=== PATIENT | female | born 1945 | race Caucasian/White ===

== ENCOUNTER 2020-05-08 13:37 | Emergency (ER) | payer MEDICARE, BC ==
[2020-05-08 13:54] VITALS: BP 158/82; PULSE 91
--- NOTE | 2020-05-08 14:47 | EDM.PDOC ---
ED HPI GENERAL MEDICAL PROBLEM - General Chief Complaint: Cardiovascular Problem Stated Complaint: SORE THROAT Time Seen by Provider: 05/08/20 14:04 Source of Information: Reports: Patient History Limitations: Reports: No Limitations - History of Present Illness INITIAL COMMENTS - FREE TEXT/NARRATIVE: The patient presents with right sided neck discomfort. Last week she passed out and the next day she saw Dr Tijerina. He did a CT of her head that showed a stroke. She also had an EEG and that looked good. She is scheduled for an MRI of the brain within the week. She has no neurologic deficits. She has no headache, fever, chills, cough, congestion, runny nose, chest pain, shortness of breath, abdominal pain, nausea and vomiting. She has no numbness or weakness. She does have some mild right sided neck discomfort. Onset: Gradual Duration: Day(s): Location: Reports: Neck (right side) Quality: Reports: Ache Severity: Mild Improves with: Reports: None Worsens with: Reports: None Associated Symptoms: Reports: No Other Symptoms Right Neck Pain Score (Numeric/FACES): 3 - Related Data Allergies Allergy/AdvReac Type Severity Reaction Status Date / Time beer Allergy Unknown Airway Uncoded 05/08/20 13:54 Tightness crab Allergy Airway Uncoded 05/08/20 13:54 Tightness lettuce Allergy Cannot Uncoded 05/08/20 13:54 Remember limes Allergy Airway Uncoded 05/08/20 13:54 Tightness macadamia nuts Allergy Airway Uncoded 05/08/20 13:54 Tightness scallops Allergy Airway Uncoded 05/08/20 13:54 Tightness walnuts Allergy Airway Uncoded 05/08/20 13:54 Tightness wine Allergy Airway Uncoded 05/08/20 13:54 Tightness Home Meds: Home Meds Alendronate [Fosamax] 70 mg PO Q7D@0600 08/31/15 [History] Aspirin 81 mg PO BRK 08/31/15 [History] Biotin 5,000 mcg PO DAILY 08/31/15 [History] Cholecalciferol (Vitamin D3) [Vitamin D] 400 units PO DAILY 08/31/15 [History] Choleslo. 2 PO BID 08/31/15 [History] Glucosamine. 1,500 mg PO DAILY 08/31/15 [History] Latanoprost [Xalatan 0.005% Ophth Soln] 1 drop EYEBOTH BEDTIME 08/31/15 [History] Lisinopril 30 mg PO DAILY 08/31/15 [History] Saxagliptin [Onglyza] 5 mg PO DAILY 08/31/15 [History] Ubidecarenone [Coq-10] 100 mg PO DAILY 08/31/15 [History] atorvaSTATin [Lipitor] 10 mg PO BEDTIME 08/31/15 [History] Past Medical History HEENT History: Reports: Cataract Cardiovascular History: Reports: High Cholesterol, Hypertension Gastrointestinal History: Reports: Hemorrhoids Musculoskeletal History: Reports: None, Back Pain, Chronic Other Musculoskeletal History: pt has frequent visits to chiropractor because of bones frequently out of place. Endocrine/Metabolic History: Reports: Diabetes, Type II - Past Surgical History HEENT Surgical History: Reports: None GI Surgical History: Reports: None Musculoskeletal Surgical History: Reports: Shoulder Surgery Social & Family History - Family History HEENT: Reports: Cataract Other HEENT Family History: mother and father had cataracts. Cardiac: Reports: Hypertension Other Cardiac Family History: mother and father. Respiratory: Reports: Asthma Other Respiratory Family Hisory: father Musculoskeletal: Reports: Back pain, Chronic Other Musculoskeletal Family History: father; frequent visits to chiropractor Neurological: Reports: Alzheimers Disease Other Neurological Family History: father Endocrine/Metabolic: Reports: Diabetes, type II Other Endocrine/Metabolic Family History: mother diabetic Oncologic: Reports: Prostate, Other (See Below) Other Oncologic Family History: mother had cancerous growth on top of stomach. dad had prostate cancer - Tobacco Use Smoking Status *Q: Never Smoker Second Hand Smoke Exposure: No - Caffeine Use Caffeine Use: Reports: Coffee - Recreational Drug Use Recreational Drug Use: No ED ROS GENERAL - Review of Systems Review Of Systems: See Below Constitutional: Reports: No Symptoms HEENT: Reports: No Symptoms Respiratory: Reports: No Symptoms Cardiovascular: Reports: No Symptoms Endocrine: Reports: No Symptoms GI/Abdominal: Reports: No Symptoms : Reports: No Symptoms Musculoskeletal: Reports: Neck Pain Skin: Reports: No Symptoms ED EXAM, GENERAL - Physical Exam Exam: See Below Exam Limited By: No Limitations General Appearance: Alert, No Apparent Distress Ears: Normal External Exam Nose: Normal Inspection Head: Atraumatic, Normocephalic Neck: Normal Inspection, Supple, Non-Tender, Other (No bruit is heard) Respiratory/Chest: No Respiratory Distress, Lungs Clear, Normal Breath Sounds Cardiovascular: Regular Rate, Rhythm, No Edema, No Murmur GI/Abdominal: Soft, Non-Tender, No Organomegaly, No Mass Back Exam: Normal Inspection Extremities: Normal Inspection Neurological: Alert, Oriented, No Motor/Sensory Deficits Course - Vital Signs Last Recorded V/S: Last Vital Signs Temp 97.2 F 05/08/20 13:48 Pulse 91 05/08/20 13:48 Resp 18 05/08/20 13:48 BP 158/82 H 05/08/20 13:48 Pulse Ox 99 05/08/20 13:48 - Re-Assessments/Exams Free Text/Narrative Re-Assessment/Exam: 05/08/20 14:48 I have ordered a carotid US bilaterally. 05/08/20 15:56 The US shows plaque asymmetrically worse on the right side. Velocity measurements within the right internal carotid artery correspond to stenosis in the range of 1-49 percent. Velocity measurements within the left internal carotid artery correspond to stenosis at the lower range of 1-49. She is on an aspirin and statin an she has an MRI tomorrow. I will discharge her home. 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 Follow up with Dr Tijerina within a week. Please return if you are worse. Sepsis Event Note (ED) - Evaluation Sepsis Screening Result: No Definite Risk - Focused Exam Vital Signs: Vital Signs Temp Pulse Resp BP Pulse Ox 05/08/20 13:48 97.2 F 91 18 158/82 H 99
--- NOTE | 2020-05-08 15:29 | US ---
Carotid ultrasound: Duplex and color flow imaging was obtained of the carotid arteries. Comparison: No prior carotid imaging is available Plaque: Moderate amount of focal plaque within the right carotid bulb extending into the origin of the internal carotid artery. Minimal plaque within the proximal left internal carotid artery plaque on the right side it is heterogeneous and calcified with irregular surface margins. Right side: CCA has a peak systolic velocity of 0.97 m/sec. ICA has a peak systolic velocity of 0.88 m/sec and peak end-diastolic velocity of 0.22 m/sec. ECA has a peak systolic velocity of 1.14 M/sec. ICA/CCA ratio is 0.9. Vertebral artery has a peak systolic velocity of 0.59. Left side: CCA has a peak systolic velocity of 1.24 m/sec. ICA has a peak systolic velocity of 1.26 m/sec and peak end-diastolic velocity of 0.37 m/sec. ECA has a peak systolic velocity of 0.79 m/sec. ICA/CCA ratio is 1.0. Vertebral artery has a peak systolic velocity of 0.61. Impression: 1. Plaque asymmetrically worse on the right side. 2. Velocity measurements within the right internal carotid artery correspond to stenosis in the range of 1-49 percent. 3. Velocity measurements within the left internal carotid artery correspond to stenosis at the lower range of 1-49 percent. Diagnostic code #2 Study was dictated in MDT
== END 2020-05-08 16:06 | disposition home or self-care (01) ==
LOC: JD.ED 13:37
DX: I65.23 Occlusion and stenosis of bilateral carotid arteries (principal); I10 Essential (primary) hypertension; E78.00 Pure hypercholesterolemia, unspecified; E11.9 Type 2 diabetes mellitus without complications; Z91.018 Allergy to other foods; Z79.82 Long term (current) use of aspirin; Z79.899 Other long term (current) drug therapy
CPT/HCPCS: 93880; 93880-26; 99282; 99283-25

== ENCOUNTER 2022-01-02 09:32 | Emergency (ER) | payer MEDICARE, BC ==
[2022-01-02 13:36] VITALS: BP 138/53; PULSE 68
== END 2022-01-02 12:35 | disposition home or self-care (01) ==
LOC: JD.ED 09:32
DX: S82.832A Other fracture of upper and lower end of left fibula, initial encounter for closed fracture (principal); R55 Syncope and collapse; D64.89 Other specified anemias; E78.00 Pure hypercholesterolemia, unspecified; I10 Essential (primary) hypertension; E11.9 Type 2 diabetes mellitus without complications; Z91.09 Other allergy status, other than to drugs and biological substances; Z79.82 Long term (current) use of aspirin; Z79.899 Other long term (current) drug therapy; W18.30XA Fall on same level, unspecified, initial encounter
CPT/HCPCS: 36415; 70450; 70450-26; 73610-26-LT; 73610-LT; 80053; 82947; 84484; 85025; 93005; 93010; 99283; 99284-25

== ENCOUNTER 2022-02-17 13:10 | Emergency (ER) | payer MEDICARE, BC ==
[2022-02-17 13:28] VITALS: BP 92/67; PULSE 78
[2022-02-17] MEDS ORDERED: Sodium Chloride 0.9% 10 ML Syringe FLUSH PRN (13:43)
[2022-02-17] MEDS ORDERED: Sodium Chloride 0.9% 1,000 ML IV ONE (14:06)
== END 2022-02-17 15:45 | disposition home or self-care (01) ==
LOC: JD.ED 13:10
DX: R55 Syncope and collapse (principal); E78.00 Pure hypercholesterolemia, unspecified; I10 Essential (primary) hypertension; E11.9 Type 2 diabetes mellitus without complications; Z87.891 Personal history of nicotine dependence; Z91.018 Allergy to other foods; Z79.82 Long term (current) use of aspirin; Z79.899 Other long term (current) drug therapy
CPT/HCPCS: 36415; 80053; 83735; 84484; 85025; 93005; 93225; 93226; 96360; 99285; J3490; J7030

== ENCOUNTER 2022-03-06 11:11 | Emergency (ER) | payer MEDICARE, BC ==
[2022-03-06 12:11] VITALS: BP 118/69; PULSE 70
[2022-03-06] MEDS ORDERED: Sodium Chloride 0.9% 10 ML Syringe FLUSH PRN (13:17)
[2022-03-06 14:30] LABS: ESTIMATED GFR 43 mL/min (>60)
== END 2022-03-06 15:40 | disposition home or self-care (01) ==
LOC: JD.ED 11:11
DX: R55 Syncope and collapse (principal); N39.0 Urinary tract infection, site not specified; E87.1 Hypo-osmolality and hyponatremia; I10 Essential (primary) hypertension; Z91.013 Allergy to seafood; Z91.018 Allergy to other foods; Z79.899 Other long term (current) drug therapy; Z87.891 Personal history of nicotine dependence; Z79.82 Long term (current) use of aspirin
CPT/HCPCS: 36415; 71045; 80053; 81001; 83735; 84484; 85025; 86140; 87086; 93005; 99284; J3490; 93010

== ENCOUNTER 2022-04-10 10:45 | Emergency (ER) | payer MEDICARE, BC ==
[2022-04-10] MEDS ORDERED: Sodium Chloride 0.9% 10 ML Syringe FLUSH PRN (11:09)
[2022-04-10 19:47] VITALS: BP 127/82; PULSE 65
== END 2022-04-10 14:00 | disposition home or self-care (01) ==
LOC: JD.ED 10:45
DX: R55 Syncope and collapse (principal); I10 Essential (primary) hypertension; E11.9 Type 2 diabetes mellitus without complications; Z91.013 Allergy to seafood; Z91.018 Allergy to other foods; Z79.899 Other long term (current) drug therapy; Z79.82 Long term (current) use of aspirin
CPT/HCPCS: 36415; 70450; 71045; 80053; 83735; 83880; 84484; 85025; 85610; 85730; 93005; 99285; J3490; 93010; 99284

== ENCOUNTER 2023-03-19 07:13 | Emergency (ER) | payer MEDICARE, BC ==
[2023-03-19] MEDS ORDERED: Ibuprofen 600 MG Tab PO ONE (07:43)
[2023-03-19] MEDS ORDERED: Acetaminophen 325 MG Tab PO ONE (07:43)
[2023-03-19 08:57] VITALS: BP 149/64; PULSE 60
== END 2023-03-19 09:00 | disposition home or self-care (01) ==
LOC: JD.ED 07:13
DX: M25.561 Pain in right knee (principal); M25.551 Pain in right hip; E11.9 Type 2 diabetes mellitus without complications; E78.00 Pure hypercholesterolemia, unspecified; I10 Essential (primary) hypertension; Z79.82 Long term (current) use of aspirin; Z79.899 Other long term (current) drug therapy; Z91.018 Allergy to other foods; Z88.8 Allergy status to other drugs, medicaments and biological substances; Z91.048 Other nonmedicinal substance allergy status; Z91.013 Allergy to seafood
CPT/HCPCS: 99283; A9270

== ENCOUNTER 2023-05-13 18:05 | Emergency (ER) | payer MEDICARE, BC ==
[2023-05-13 20:22] VITALS: BP 155/72; PULSE 89
== END 2023-05-13 20:09 | disposition home or self-care (01) ==
LOC: JD.ED 18:05
DX: K59.00 Constipation, unspecified (principal); E11.9 Type 2 diabetes mellitus without complications; I10 Essential (primary) hypertension; E78.00 Pure hypercholesterolemia, unspecified; Z79.82 Long term (current) use of aspirin; Z79.899 Other long term (current) drug therapy; Z91.018 Allergy to other foods; Z91.013 Allergy to seafood
CPT/HCPCS: 99283

== ENCOUNTER 2023-09-28 09:39 | Emergency (ER) | payer BC, MEDICARE ==
[2023-09-28 10:16] VITALS: BP 148/78; PULSE 82
== END 2023-09-28 12:10 | disposition home or self-care (01) ==
LOC: JD.ED 09:39
DX: M25.512 Pain in left shoulder (principal); I10 Essential (primary) hypertension; E78.00 Pure hypercholesterolemia, unspecified; E11.9 Type 2 diabetes mellitus without complications; Z90.49 Acquired absence of other specified parts of digestive tract; Z79.82 Long term (current) use of aspirin; Z79.899 Other long term (current) drug therapy; Z91.018 Allergy to other foods
CPT/HCPCS: 73030-26-LT; 73030-LT; 99283

== ENCOUNTER 2023-09-28 17:06 | Emergency (ER) | payer MEDICARE ==
[2023-09-28 17:39] VITALS: BP 150/78; PULSE 94
[2023-09-28] MEDS: Acetaminophen/HYDROcodone 325-5 MG Tab PO ONE (20:04)
== END 2023-09-28 20:17 | disposition home or self-care (01) ==
LOC: JD.ED 17:06
DX: S43.102A Unspecified dislocation of left acromioclavicular joint, initial encounter (principal); I10 Essential (primary) hypertension; E78.00 Pure hypercholesterolemia, unspecified; E11.9 Type 2 diabetes mellitus without complications; Z91.018 Allergy to other foods; Z88.8 Allergy status to other drugs, medicaments and biological substances; Z79.82 Long term (current) use of aspirin; Z79.899 Other long term (current) drug therapy; Z90.49 Acquired absence of other specified parts of digestive tract; X50.1XXA Overexertion from prolonged static or awkward postures, initial encounter
CPT/HCPCS: 73030-26-LT; 73030-LT; 99283; A9270-GY

== ENCOUNTER 2023-11-03 12:28 | Emergency (ER) | payer MEDICARE ==
[2023-11-03 12:47] VITALS: BP 119/68; PULSE 95
[2023-11-03 13:26] LABS: BASOPHILS ABSOLUTE AUTO 0.1 K/mm3 (0.0-0.2); BASOPHILS PERCENT AUTO 1.2 % (0.0-1.0); EOSINOPHILS ABSOLUTE AUTO 0.2 K/mm3 (0.0-0.4); EOSINOPHILS PERCENT AUTO 2.3 % (0.0-6.0); HEMATOCRIT 32.7 % (37.0-47.0); HEMOGLOBIN 10.9 gm/dl (12.0-16.0); IMMATURE GRAN ABSOLUTE AUTO 0.02 K/mm3 (0.00-0.05); IMMATURE GRAN PERCENT AUTO 0.2 % (0.0-0.4); LYMPHOCYTES ABSOLUTE AUTO 1.3 K/mm3 (1.0-4.8); LYMPHOCYTES PERCENT AUTO 16.2 % (24.0-44.0); MEAN CORPUSCULAR HEMOGLOBIN 30.3 pg (28.0-32.0); MEAN CORPUSCULAR HGB CONC 33.3 g/dl (32.0-36.0); MEAN CORPUSCULAR VOLUME 90.8 fl (83.0-99.0); MEAN PLATELET VOLUME 9.1 fl (9.4-12.3); MONOCYTES ABSOLUTE AUTO 0.6 K/mm3 (0.0-0.8); NEUTROPHILS PERCENT AUTO 73.1 % (41.0-71.0); PLATELET COUNT,PLT 262 K/mm3 (150-400); WHITE BLOOD CELL COUNT,WBC 8.27 K/mm3 (3.9-11.3)
[2023-11-03 13:38] LABS: INR 1.01; PROTHROMBIN TIME 10.8 SECONDS (9.7-12.0)
[2023-11-03 13:47] LABS: LACTIC ACID 1.1 mmol/L (0.4-2.0)
[2023-11-03 13:48] LABS: A/G RATIO 1.2 (1-2); ANION GAP 15.3 (5-15); BILIRUBIN TOTAL 0.5 mg/dL (0.2-1.0); BUN/CREATININE RATIO 17.7 (14-18); CALCIUM 9.3 mg/dL (8.5-10.1); CREATININE 1.3 mg/dL (0.55-1.02); EST CRCL DRUG DOSING (CG) 30.45 mL/min; POTASSIUM,K 4.3 mEq/L (3.5-5.1); PROTEIN TOTAL,TP 7.3 g/dl (6.4-8.2)
[2023-11-03 13:58] LABS: APPEARANCE,URINE CLEAR (Clear); BILIRUBIN,URINE NEGATIVE (Negative); COLOR,URINE YELLOW (Yellow); GLUCOSE,URINE NEGATIVE (Negative); KETONES,URINE NEGATIVE (Negative); LEUKOCYTE ESTERASE,URINE TRACE (Negative); NITRITE,URINE NEGATIVE (Negative); OCCULT BLOOD,URINE TRACE-INTACT (Negative); PROTEIN,URINE 1+ (Negative); UROBILINOGEN,URINE 0.2 (0.2-1.0)
[2023-11-03 14:11] LABS: BACTERIA,URINE FEW /hpf (FEW); EPITHELIAL CELLS,URINE 0-5 /hpf (0-5); MUCUS,URINE FEW /hpf (FEW)
== END 2023-11-03 15:08 | disposition home or self-care (01) ==
LOC: JD.ED 12:28
DX: I95.1 Orthostatic hypotension (principal); I10 Essential (primary) hypertension; E78.00 Pure hypercholesterolemia, unspecified; E11.9 Type 2 diabetes mellitus without complications; Z79.899 Other long term (current) drug therapy; Z91.018 Allergy to other foods
CPT/HCPCS: 36415; 70450; 70450-26; 80053; 81001; 83605; 83735; 84484; 85025; 85610; 87086; 93005; 93010; 99282; 99284

== ENCOUNTER 2024-06-09 09:20 | Emergency (ER) | payer MEDICARE ==
[2024-06-09] MEDS: Sodium Chloride 0.9% 10 ML Syringe FLUSH PRN ×2 (10:21→11:32)
[2024-06-09] MEDS: Ondansetron 4 MG/2 ML SDV IVPUSH ONE (10:21)
[2024-06-09] MEDS: HYDROmorphone 0.5 MG/0.5 ML Syringe IVPUSH ONE (10:21)
[2024-06-09 10:37] LABS: BASOPHILS ABSOLUTE AUTO 0.1 K/mm3 (0.0-0.2); BASOPHILS PERCENT AUTO 1.3 % (0.0-1.0); EOSINOPHILS ABSOLUTE AUTO 0.2 K/mm3 (0.0-0.4); EOSINOPHILS PERCENT AUTO 3.3 % (0.0-6.0); HEMATOCRIT 32.6 % (37.0-47.0); HEMOGLOBIN 10.9 gm/dl (12.0-16.0); IMMATURE GRAN ABSOLUTE AUTO 0.02 K/mm3 (0.00-0.05); IMMATURE GRAN PERCENT AUTO 0.3 % (0.0-0.4); LYMPHOCYTES ABSOLUTE AUTO 1.2 K/mm3 (1.0-4.8); LYMPHOCYTES PERCENT AUTO 18.1 % (24.0-44.0); MEAN CORPUSCULAR HEMOGLOBIN 30.3 pg (28.0-32.0); MEAN CORPUSCULAR HGB CONC 33.4 g/dl (32.0-36.0); MEAN CORPUSCULAR VOLUME 90.6 fl (83.0-99.0); MEAN PLATELET VOLUME 9.1 fl (9.4-12.3); MONOCYTES ABSOLUTE AUTO 0.6 K/mm3 (0.0-0.8); MONOCYTES PERCENT AUTO 9.4 % (0.0-8.0); NEUTROPHILS ABSOLUTE AUTO 4.3 K/mm3 (1.8-7.7); NEUTROPHILS PERCENT AUTO 67.6 % (41.0-71.0); PLATELET COUNT,PLT 247 K/mm3 (150-400); WHITE BLOOD CELL COUNT,WBC 6.37 K/mm3 (3.9-11.3)
[2024-06-09 11:22] LABS: A/G RATIO 1.2 (1-2); ANION GAP 12.2 (5-15); BILIRUBIN TOTAL 0.7 mg/dL (0.2-1.0); BUN/CREATININE RATIO 17.3 (14-18); CALCIUM 9.8 mg/dL (8.5-10.1); CREATININE 1.1 mg/dL (0.55-1.02); EST CRCL DRUG DOSING (CG) 38.54 mL/min; POTASSIUM,K 4.2 mEq/L (3.5-5.1); PROTEIN TOTAL,TP 7.3 g/dl (6.4-8.2)
[2024-06-09] MEDS: Iopamidol 612 MG/ML 100 ML Bottle IVPUSH ONE (11:33)
[2024-06-09 11:57] LABS: APPEARANCE,URINE SLT CLOUDY (Clear); BILIRUBIN,URINE NEGATIVE (Negative); COLOR,URINE YELLOW (Yellow); GLUCOSE,URINE NEGATIVE (Negative); KETONES,URINE NEGATIVE (Negative); LEUKOCYTE ESTERASE,URINE NEGATIVE (Negative); NITRITE,URINE NEGATIVE (Negative); OCCULT BLOOD,URINE NEGATIVE (Negative); PROTEIN,URINE NEGATIVE (Negative); UROBILINOGEN,URINE 0.2 (0.2-1.0)
[2024-06-09 12:09] LABS: BACTERIA,URINE FEW /hpf (FEW); EPITHELIAL CELLS,URINE 0-5 /hpf (0-5); MUCUS,URINE FEW /hpf (FEW); RBC,URINE 0-5 /hpf (0-5); WBC,URINE 0-5 /hpf (0-5)
[2024-06-09 14:58] VITALS: BP 120/60; PULSE 78
== END 2024-06-09 14:20 | disposition home or self-care (01) ==
LOC: JD.ED 09:20
DX: K63.89 Other specified diseases of intestine (principal); I10 Essential (primary) hypertension; E78.00 Pure hypercholesterolemia, unspecified; E11.9 Type 2 diabetes mellitus without complications; Z91.013 Allergy to seafood; Z91.018 Allergy to other foods; Z91.048 Other nonmedicinal substance allergy status; Z79.82 Long term (current) use of aspirin; Z79.899 Other long term (current) drug therapy
CPT/HCPCS: 36415; 74177; 76705; 80053; 81001; 83690; 85025; 96374; 96375; 99284; J1171; J2405; J3490; Q9967

== ENCOUNTER 2024-10-18 02:44 | Emergency (ER) | payer MEDICARE ==
[2024-10-18 02:53] VITALS: PULSE 117
[2024-10-18] MEDS: Ondansetron 4 MG Tab.DIS PO ONE (03:27)
[2024-10-18] MEDS: HYDROmorphone 0.5 MG/0.5 ML Syringe IVPUSH ONE (03:28)
[2024-10-18] MEDS: Sodium Chloride 0.9% 10 ML Syringe FLUSH PRN (03:29)
[2024-10-18] MEDS: Sodium Chloride 0.9% 1,000 ML IV STA (03:29)
[2024-10-18 03:42] LABS: BASOPHILS PERCENT AUTO 0.3 % (0.0-1.0); EOSINOPHILS ABSOLUTE AUTO 0.1 K/mm3 (0.0-0.4); EOSINOPHILS PERCENT AUTO 0.4 % (0.0-6.0); HEMATOCRIT 37.4 % (37.0-47.0); HEMOGLOBIN 12.6 gm/dl (12.0-16.0); IMMATURE GRAN ABSOLUTE AUTO 0.06 K/mm3 (0.00-0.05); IMMATURE GRAN PERCENT AUTO 0.4 % (0.0-0.4); LYMPHOCYTES ABSOLUTE AUTO 0.2 K/mm3 (1.0-4.8); LYMPHOCYTES PERCENT AUTO 1.4 % (24.0-44.0); MEAN CORPUSCULAR HEMOGLOBIN 30.6 pg (28.0-32.0); MEAN CORPUSCULAR HGB CONC 33.7 g/dl (32.0-36.0); MEAN CORPUSCULAR VOLUME 90.8 fl (83.0-99.0); MEAN PLATELET VOLUME 9.5 fl (9.4-12.3); MONOCYTES ABSOLUTE AUTO 0.5 K/mm3 (0.0-0.8); MONOCYTES PERCENT AUTO 3.6 % (0.0-8.0); NEUTROPHILS PERCENT AUTO 93.9 % (41.0-71.0); PLATELET COUNT,PLT 263 K/mm3 (150-400); RED BLOOD CELL COUNT 4.12 M/mm3 (4.10-5.30); WHITE BLOOD CELL COUNT,WBC 13.83 K/mm3 (3.9-11.3)
[2024-10-18 04:17] LABS: A/G RATIO 1.3 (1-2); ALBUMIN 4.5 g/dl (3.4-5.0); ANION GAP 14.9 (5-15); BILIRUBIN TOTAL 0.7 mg/dL (0.2-1.0); BUN/CREATININE RATIO 14.1 (14-18); CALCIUM 10.2 mg/dL (8.5-10.1); CREATININE 1.7 mg/dL (0.55-1.02); EST CRCL DRUG DOSING (CG) 20.91 mL/min; POTASSIUM,K 3.9 mEq/L (3.5-5.1); PROTEIN TOTAL,TP 8.1 g/dl (6.4-8.2)
[2024-10-18 05:19] VITALS: BP 144/61
[2024-10-18 05:34] LABS: SLIDE REVIEW ABNORMAL SMEAR
== END 2024-10-18 05:12 | disposition home or self-care (01) ==
LOC: JD.ED 02:44
DX: K52.9 Noninfective gastroenteritis and colitis, unspecified (principal); I10 Essential (primary) hypertension; E78.00 Pure hypercholesterolemia, unspecified; E11.9 Type 2 diabetes mellitus without complications; Z91.013 Allergy to seafood; Z91.018 Allergy to other foods; Z91.09 Other allergy status, other than to drugs and biological substances; Z79.82 Long term (current) use of aspirin; Z79.899 Other long term (current) drug therapy; Z87.891 Personal history of nicotine dependence
CPT/HCPCS: 36415; 80053; 83690; 85025; 96361; 96374; 99284; A9270; J7030; 99283

== ENCOUNTER 2025-06-17 15:58 | Emergency (ER) | payer MEDICARE ==
[2025-06-17 20:31] VITALS: BP 177/70; PULSE 81
== END 2025-06-17 20:30 | disposition home or self-care (01) ==
LOC: JD.ED 15:58
DX: S22.42XA Multiple fractures of ribs, left side, initial encounter for closed fracture (principal); S01.112A Laceration without foreign body of left eyelid and periocular area, initial encounter; E78.00 Pure hypercholesterolemia, unspecified; I10 Essential (primary) hypertension; E11.9 Type 2 diabetes mellitus without complications; I70.90 Unspecified atherosclerosis; Z71.89 Other specified counseling; Z79.899 Other long term (current) drug therapy; Z91.013 Allergy to seafood; Z91.018 Allergy to other foods; Z79.82 Long term (current) use of aspirin; W18.09XA Striking against other object with subsequent fall, initial encounter; Y92.009 Unspecified place in unspecified non-institutional (private) residence as the place of occurrence of the external cause
CPT/HCPCS: 12011; 70450; 71101; 72125; 99283; J2003